=== PATIENT | female | born 1975 | race Caucasian/White ===

== ENCOUNTER 2017-04-13 14:47 | Emergency (ER) | payer MEDICARE ==
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
[~2017-04-13 14:47] MED LIST: ADDERALL PO; ADDERALLXR PO; AMBIEN CR PO; BENTYL20 M1 PO; CELEXA PO; CIPRO PO; CIPRO250 M1 PO; CLEOCIN PO; DEPAKOTE ER PO; DEPAKOTE PO; DEPAKOTE250 MG PO; DESYREL50 MG PO; EC-NAPROSYN500 MG PO; FAMOTIDINE PO; HYDROCODONE-APA1 T33 PO; IBUPROFEN PO; KLONOPIN PO; KLONOPIN2 MG PO; LISINOPRIL PO; LISINOPRIL10 MG PO; LORTAB 5/500 TA1 TA1 PO; LORTAB 7.5-5001 TAB PO; MOTRIN600 M2 PO; NAPROSYN500 MG PO; PERCOCET5/325 PO; PRILOSEC40 MG PO; PYRIDIUM PO; SEROQUEL PO; VICODIN 5/500 T1 TAB PO; ZANTAC PO; ZANTAC150 MG PO; ZOFRAN ODT4 MG PO
== END 2017-04-13 17:33 | disposition home or self-care (01) ==
LOC: SED 14:47
DX: S02.31XA Fracture of orbital floor, right side, initial encounter for closed fracture (principal); S02.40CA Maxillary fracture, right side, initial encounter for closed fracture; I10 Essential (primary) hypertension; Z88.0 Allergy status to penicillin; Z23 Encounter for immunization; Y04.2XXA Assault by strike against or bumped into by another person, initial encounter; Y92.009 Unspecified place in unspecified non-institutional (private) residence as the place of occurrence of the external cause
CPT/HCPCS: 70450; 70486; 90471; 90715; 99283

== ENCOUNTER 2017-05-07 00:34 | Emergency (ER) | payer MEDICARE ==
[~2017-05-07] VITALS: Ht 154.9 cm; Wt 58.0 kg
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
[2017-05-07] MEDS ORDERED: NO MEDICATIONS (00:46)
== END 2017-05-07 01:56 | disposition home or self-care (01) ==
LOC: SED 00:34
DX: S60.021A Contusion of right index finger without damage to nail, initial encounter (principal); S60.031A Contusion of right middle finger without damage to nail, initial encounter; S60.041A Contusion of right ring finger without damage to nail, initial encounter; I10 Essential (primary) hypertension; Z88.0 Allergy status to penicillin; X58.XXXA Exposure to other specified factors, initial encounter; Y92.89 Other specified places as the place of occurrence of the external cause
CPT/HCPCS: 73130; 99283